=== PATIENT | male | born 1945 | race Caucasian/White ===

== ENCOUNTER 2017-10-17 08:17 | Observation (INO) | payer OTHER ==
--- NOTE | 2017-10-14 15:43 | MH ---
cc: David PATEL DATE OF ADMISSION: 10/17/2017 ADMISSION DIAGNOSIS Osteoarthritic degeneration right knee. ADMISSION HISTORY AND PHYSICAL This pleasant 72-year-old male is being admitted today for right total knee arthroplasty due to severe painful osteoarthritic degeneration of the right knee. PAST MEDICAL HISTORY Other past history: 1. The patient has a history of atrial fibrillation. 2. Hypertension. 3. Hyperlipidemia. 4. Type 2 diabetes mellitus. CURRENT MEDICATIONS 1. NovoLog. 2. Levemir. 3. Baclofen. 4. Invokana 5. Cartia. 6. Atorvastatin. 7. Metoprolol. 8. Doxycycline. 9. Eliquis which is stopped before surgery. PAST SURGICAL HISTORY Previous surgery: 1. Cholecystectomy. 2. Right knee arthroscopy in the past. REVIEW OF SYSTEMS Noncontributory. FAMILY HISTORY Noncontributory. SOCIAL HISTORY He does not smoke or drink. ALLERGIES NO KNOWN ALLERGIES. PHYSICAL EXAMINATION GENERAL: We find a 72-year-old male well-developed, well-nourished, alert and oriented times three complaining of pain in his right knee. VITAL SIGNS: Blood pressure 126/72, pulse 86 and regular, respirations 16, temperature 97.9, pulse oximetry 97% on room air. HEENT: Eyes PERRL, EOMI. Ears, nose, mouth clear. NECK: Supple. LUNGS: Clear. HEART: Regular rate. ABDOMEN: Soft. Positive bowel sounds and nontender. EXTREMITIES: Reveal his knee be tender with crepitance on range of motion. Neurovascularly intact to his toes. IMPRESSION At this time is severe painful osteoarthritic degeneration right knee. PLAN Admission for right total knee arthroplasty today. The patient given a prescription for postoperative pain control in the office and he understands procedure well and risks involved and plans on going home after surgical stay in the hospital. MD SAUMYA Merritt/SOPHIA /5:19 PM /3:19 PM
[~2017-10-17] VITALS: Ht 185.4 cm; Wt 113.3 kg
[2017-10-17] MEDS ORDERED: DEXAMETHASONE SOD PHOS 20 MG/5 ML VIAL ONE (09:54)
[2017-10-17] MEDS ORDERED: ATOR40TA16 PO (10:30)
[2017-10-17] MEDS ORDERED: BACL10TA PO (10:30)
[2017-10-17] MEDS ORDERED: DILT0.05 PO (10:30)
[2017-10-17] MEDS ORDERED: BOSW5TAB (10:30)
[2017-10-17] MEDS ORDERED: MELA1TAB18 PO (10:30)
[2017-10-17] MEDS ORDERED: METO50TA PO (10:30)
[2017-10-17] MEDS ORDERED: APIX5TAB PO (10:30)
[2017-10-17] MEDS ORDERED: LEVEMIR SQ (10:30)
[2017-10-17] MEDS ORDERED: OSTETAB3 PO (10:30)
[2017-10-17] MEDS ORDERED: NOVOLOGP2 SQ ×3 (10:30)
[2017-10-17] MEDS ORDERED: ACCU40TA PO (10:30)
[2017-10-17] MEDS ORDERED: VITACAP7 PO (10:30)
[2017-10-17] MEDS ORDERED: ceFAZolin INJ 1,000 MG VIAL ONE ×2 (10:33→12:44)
[2017-10-17] MEDS ORDERED: ceFAZolin 2 GM PREMIX 50 ML ONE (10:33)
--- NOTE | 2017-10-17 11:10 | HHI.FF ---
Face to Face Verification Diagnosis: (1) Status post total right knee replacement (2) Osteoarthritis of right knee (3) Diabetes (4) Hypertension Physical Therapy Gait training Knee: Total knee, Protocol: Right, Gait training, Full weight bearing Canvas Knee Splint: When in bed & 2 pillows btw thighs Nursing Nursing: Dressing changes Dressing Changes: Daily dressing change, 4x4s, Gauze, Paper tape I have seen patient Juan Lee on 10/17/17. My clinical findings support the need for the requested home health care services because: Limited ability to care for self High risk of falls I certify that my clinical findings support that this patient is homebound because: Unsteady gait/balance David Cazares MD Oct 17, 2017 11:09
[2017-10-17] MEDS ORDERED: CPMMACHINE (11:11)
[2017-10-17] MEDS ORDERED: ADJUSTABLE COMM1 MIS (11:11)
[2017-10-17] MEDS ORDERED: WALKER WHEELS/F1 MIS (11:11)
[2017-10-17] MEDS ORDERED: ACETAMINOPHEN/HYDROcodone 325 MG/7.5 MG TAB PO PRN (11:15)
[2017-10-17] MEDS ORDERED: BACLOFEN 10 MG TAB PO PRN (11:15)
[2017-10-17] MEDS ORDERED: TEMAZEPAM 15 MG CAP PO PRN (11:15)
[2017-10-17] MEDS ORDERED: ACETAMINOPHEN 325 MG TAB PO PRN (11:15)
[2017-10-17] MEDS ORDERED: NALOXONE HCL 0.4 MG/ML AMP IV PUSH PRN (11:15)
[2017-10-17] MEDS ORDERED: ONDANSETRON HCL 4 MG/2 ML VIAL IVP PRN (11:15)
[2017-10-17] MEDS ORDERED: MORPHINE SULFATE 4 MG/ML INJ IV PUSH PRN ×2 (11:15→11:45)
[2017-10-17] MEDS ORDERED: MELATONIN 5 MG TAB PO PRN (11:15)
[2017-10-17] MEDS ORDERED: diphenhydrAMINE HCL 50 MG/ML VIAL IV PUSH PRN (11:15)
[2017-10-17] MEDS ORDERED: CHLORHEXIDINE GLUCONATE 4% SOLN 120 ML BTL TOPICAL SCH (11:30)
[2017-10-17] MEDS ORDERED: ceFAZolin 2 GM PREMIX 50 ML IV SCH (11:30)
[2017-10-17] MEDS ORDERED: LACTATED RINGER'S 1000 ML IV PRN (11:30)
[2017-10-17] MEDS ORDERED: POVIDONE IODINE 5% (ANTISEPSIS KIT) 4 APPLICATIONS EACH NARE PRN (11:30)
[2017-10-17] MEDS ORDERED: CHLORHEXIDINE GLUCONATE 2 % 1 PACK (2 CLOTHS) TOPICAL PRN (11:30)
[2017-10-17] MEDS ORDERED: VANCOMYCIN 1000 MG/NS 250 ML (for <70 kg) IV SCH ×2 (11:30)
[2017-10-17] MEDS ORDERED: SODIUM CHLORID 0.9% 500 ML IV PRN (11:30)
[2017-10-17] MEDS ORDERED: METOPROLOL TARTRATE 25 MG TAB PO PRN (11:30)
[2017-10-17] MEDS ORDERED: EXPAREL PERI-ARTICULAR INJECTION (TOTAL VOL. 120 ML) P-ARTICULR SCH ×2 (12:00)
[2017-10-17] MEDS ORDERED: SODIUM CHLORIDE 0.9% IV SCH ×2 (12:00→15:00)
[2017-10-17] MEDS ORDERED: TRANEXAMIC ACID INJ 1,130 MG in SODIUM CHLORIDE 0.9% INJ 100 ML IV SCH (12:00)
[2017-10-17] MEDS ORDERED: TRANEXAMIC ACID IV SCH ×2 (12:00→15:00)
[2017-10-17] MEDS ORDERED: BUPIVACAINE HCL PF 0.5% 30 ML VIAL ONE (12:10)
[2017-10-17] MEDS ORDERED: *RESP: ALBUTEROL 2.5 MG/3 ML NEB (PRN) PERIprocedural Use ONLY NEB ONE (14:55)
[2017-10-17] MEDS ORDERED: DO NOT ADM ANY ANTICOAGULANT DRUGS PRN (14:56)
--- NOTE | 2017-10-17 14:56 | HHI.PR ---
Immediate Post Op Note Procedure Date: Oct 17, 2017 Pre Op Diagnosis: severe painful osteoarthritic degeneration of the right knee. Post Op Diagnosis: severe osteoarthritic degeneration of the right knee. Surgeon: David Cazares MD Security Escort(s): Luna STOREY Procedure: Right Total Knee Arthroplasty Complications: none Specimen(s) removed: none Estimated blood loss: 200cc Anesthesia: General Drains: None IVF Urinary Output (mLs): 0 (no fley) Tourniquet time (min at mmHg) 57 mins at 300 mmHg Patient to: PACU Patient Condition: Good Implant/Devices: SEE IMPLANT LOG (if applicable) Date/Time of Procedure: SEE SURGICAL CARE RECORD Luna Bergeron Oct 17, 2017 14:56
[2017-10-17] MEDS ORDERED: MIDAZOLAM HCL 2 MG/2 ML VIAL ONE (15:04)
[2017-10-17] MEDS ORDERED: *morphine SULFATE 10 MG/ML PERIprocedure ONLY ONE (15:05)
[2017-10-17] MEDS: LACTATED RINGER'S 1000 ML INJ 1,000 ML IV SCH ×2 (15:30→23:33)
[2017-10-17] MEDS ORDERED: *morphine SULFATE 4 MG/ML PERIprocedure ONLY ONE (15:38)
--- NOTE | 2017-10-17 15:46 | RADRPT ---
EXAM DATE/TIME: 10/17/2017 15:07 [facility] COMPARISON: No previous studies available for comparison. INDICATIONS : Post op right knee. MEDICAL HISTORY : None. SURGICAL HISTORY : None. ENCOUNTER: Initial ACUITY: 1 day PAIN SCORE: Non-responsive. LOCATION: Right knee. FINDINGS: Postsurgical features of right knee arthroplasty. Arthroplasty components are in anatomic alignment. No significant acute bony fracture. Immediate postsurgical soft tissue features. CONCLUSION: 1. Status post right knee arthroplasty in anatomic alignment without significant acute bony fracture. Jonathan Jessica MD on October 17, 2017 at 15:43 Board Certified Radiologist. This report was verified electronically.
[2017-10-17] MEDS ORDERED: *LABETALOL HCL 100 MG/20 ML VIAL PERIprocedural Use ONLY ONE (15:49)
[2017-10-17 16:00] VITALS: BP 167/85; PULSE 74; RESP 19; TEMP 96; O2SAT 92
[2017-10-17] MEDS ORDERED: Post-op Orders (for Pharmacy) XX ONE (16:00)
[2017-10-17] MEDS: INSULIN ASPART 1,000 UNITS/10 ML VIAL SQ SCH (16:00)
--- NOTE | 2017-10-17 18:54 | EKG ---
Date Performed: 10/17/2017 Time Performed: 11:41:42 PTAGE: 72 years EKG: Sinus rhythm NORMAL ECG NO PREVIOUS TRACING DOCTOR: Gume Pérez Interpretating Date/Time 10/17/2017 18:52:16
[2017-10-17 20:00] VITALS: BP 160/82; PULSE 78; RESP 16; TEMP 96.4; O2SAT 94
[2017-10-17] MEDS: METOPROLOL TARTRATE 50 MG TAB PO SCH (20:29)
[2017-10-17] MEDS: INSULIN DETEMIR 100 UNITS/ML VIAL SQ SCH (20:29)
[2017-10-17] MEDS: ATORVASTATIN 40 MG TAB PO SCH (20:29)
[2017-10-17] MEDS ORDERED: GLUCOSAMINE CHONDROITIN PO SCH (21:00)
[2017-10-17] MEDS: ACETAMINOPHEN/HYDROcodone 325 MG/7.5 MG TAB PO PRN (22:08)
[2017-10-18] VITALS: BP 151/86; PULSE 82; RESP 16; TEMP 97.6; O2SAT 95
[2017-10-18] MEDS: ACETAMINOPHEN/HYDROcodone 325 MG/7.5 MG TAB PO PRN ×6 (02:38→22:38)
[2017-10-18 04:00] VITALS: BP 135/66; PULSE 71; RESP 16; TEMP 97.5; O2SAT 92
[2017-10-18 04:29] LABS: HEMATOCRIT 36.5 % (39.0-51.0); HEMOGLOBIN 12.3 GM/DL (13.0-17.0)
[2017-10-18] MEDS: INSULIN ASPART 1,000 UNITS/10 ML VIAL SQ SCH ×3 (07:00→16:00)
[2017-10-18] MEDS: INSULIN DETEMIR 100 UNITS/ML VIAL SQ SCH ×2 (07:38→20:42)
[2017-10-18] MEDS: LISINOPRIL 20 MG TAB PO SCH (07:39)
[2017-10-18] MEDS: METOPROLOL TARTRATE 50 MG TAB PO SCH ×2 (07:39→20:39)
[2017-10-18] MEDS: DILTIAZEM-CD 180 MG CAP ER PO SCH (07:39)
[2017-10-18] MEDS: VITAMIN B CMPLX/VITC/FOLIC AC CAP PO SCH (07:39)
[2017-10-18 08:00] VITALS: BP 149/78; PULSE 78; RESP 18; TEMP 96.7; O2SAT 94
[2017-10-18] MEDS: LACTATED RINGER'S 1000 ML INJ 1,000 ML IV SCH (09:42)
[2017-10-18 10:33] VITALS: BP 99/54; PULSE 70; RESP 18; TEMP 97.8; O2SAT 91
--- NOTE | 2017-10-18 11:48 | PD.ORT.PN ---
Subjective Subjective Remarks Pt fairly comfortable today. no complaints. Objective Vitals Vital Signs Date Time Temp Pulse Resp B/P (MAP) Pulse Ox O2 Delivery O2 Flow Rate FiO2 10/18/17 10:33 97.8 70 18 99/54 (69) 91 10/18/17 08:00 96.7 78 18 149/78 (101) 94 10/18/17 04:00 97.5 71 16 135/66 (89) 92 10/18/17 00:00 97.6 82 16 151/86 (107) 95 10/17/17 20:00 96.4 78 16 160/82 (108) 94 10/17/17 16:15 98.7 77 18 176/87 (116) 95 Nasal Cannula 2 10/17/17 16:00 96.0 74 19 167/85 (112) 92 10/17/17 16:00 68 16 169/85 (113) 95 10/17/17 15:45 80 16 183/88 (119) 94 10/17/17 15:30 82 21 175/85 (115) 95 10/17/17 15:15 80 21 183/82 (115) 95 10/17/17 15:00 78 15 185/90 (121) 97 Nasal Cannula 3 10/17/17 14:55 97.7 82 17 120/90 (100) 94 Simple Mask 6 I/O 10/17/17 10/17/17 10/17/17 10/18/17 10/18/17 10/18/17 07:00 15:00 23:00 07:00 15:00 23:00 Intake Total 2000 ml 100 ml 100 ml Output Total 200 ml Balance 1800 ml 100 ml 100 ml Intake IV Total 2000 ml 100 ml 100 ml Output Estimated Blood Loss 200 ml Result Diagram: 10/18/17 0330 Objective Remarks Sitting up in chair. NV intact. Moving leg well against gravity. Dressing dry and intact. No calf tenderness. Assessment & Plan Ortho Post Op Day #: 1 Problem List: Assessment and Plan Cont PT. Plan home tomorrow with [facility]. David Cazares MD Oct 18, 2017 11:48
[2017-10-18] MEDS: APIXABAN 2.5 MG TABLET PO SCH ×2 (13:53→20:39)
[2017-10-18 15:29] VITALS: BP 144/67; PULSE 73; RESP 17; TEMP 96.4; O2SAT 94
--- NOTE | 2017-10-18 17:34 | MP ---
cc: David PATEL DATE OF SURGERY 10/17/17 PREOPERATIVE DIAGNOSIS Osteoarthritic degeneration, right knee. POSTOPERATIVE DIAGNOSIS Osteoarthritic degeneration, right knee. SURGERY PERFORMED Right total knee arthroplasty using consensus component, size five femur, four tibia, 12 insert and size two patella, two batches of DePuy cement SURGEON Dr. Melanie Patel VACUUM FRAME OPERATOR RALEIGH Daniels ANESTHESIA General intubation and block PROCEDURE IN DETAIL After successful induction of anesthesia, the patient is placed on the operating room table in the supine position. The knee is prepped and draped in the usual manner. A tourniquet is inflated at the upper thigh and set to 300 mmHg pressure after exsanguination of the lower extremity. A longitudinal incision is made extending from 3 inches proximal to the superior pole of the patella, across the patella in longitudinal fashion, and down past the insertion of the tibial tubercle into the proximal tibia. The incision is carried down through subcutaneous tissue along the medial aspect of the patella and retinaculum, down through the capsule to expose the knee joint. The patella and patellar tendon are freed up enough to allow the patella to be inverted and retracted off the lateral side of the knee joint. The knee joint is left exposed. Small osteophytes are removed. All soft tissue is removed to allow proper position of the femoral and tibial cutting jig guide. The first femoral jig is then inserted along the distal end of the femur after first measuring to decide whether this is a small, medium, or large component. The notch is then drilled and the tibial cutting guide inserted into the femoral cutting guide, along with the ankle brace to allow for proper measurement of the tibial cutting surface that needed to be resected. Pins are inserted into the tibial cutting jig and femoral cutting jig to hold them in place. An oscillating saw is then used to resect the surface of the tibia. The surface of the tibia is then completely removed using sharp and blunt dissection. The anterior and posterior cuts of the femur are then made as well using an oscillating saw through the cutting guide. All guides are then removed and the varus/valgus angulation cutting guide applied to the femur for proper measurement of the proper amount of valgus. The anterior cutting guide for the femur is then inserted at the anterior femoral cuts made. Next, the first block trial is inserted into the femur to allow for proper condyle drill holes to be made which are then made followed by removal of the bone between the condyles using an oscillating saw as well as the bone removed at the most posterior surface of the condyle. After this, this guide is removed and the chamfer cuts made using the chamfer cutting guide from both anterior and posterior. Next, the femoral trial is then inserted, the tibial surface reflected anterior to expose the tibial surface and a tibial stem guide is inserted after first measuring for a standard, standard plus, large, or large plus surface to be used. After the stem is impacted the trial tibial surface is applied followed by the trial meniscal components. After full range of motion is found with the appropriate length meniscal components varying the patella is prepared by resecting the posterior aspect of the patella using an oscillating saw, inserting a trial. The trial is then removed and the cruciate cutting guide applied using the bur to cut the cruciate cuts. After cruciate cuts are made all trials are removed. The wound is irrigated copiously with antibiotic solution and Water Pik and the actual components inserted into place using the aforementioned components. After the cement has hardened and the components are found to have full range of motion with no instability, tourniquet was deflated - total tourniquet time being 58 minutes at 300 mmHg pressure. 120 mL of Exparel used around the knee joint for extra pain control. Deep fascia approximated after meticulous hemostasis achieved and the wound irrigated copiously with antibiotic solution. Deep fascia approximated using interrupted #2 quill and subcutaneous tissue approximated using interrupted and running 2-0 and 3-0 Monocryl suture. Steri-Strips, sterile dressing, knee immobilizer. No drain utilized. Estimated blood loss 200 mL. Sponge and suture count were correct. The patient tolerated the procedure well and left the operating room in satisfactory condition and RALEIGH Sanches, was present during the entire procedure to include patient positioning and the procedure. The medical necessity of a nurse practitioner machinist first class was indicated in this case due to the surgical complexity of the case itself. During the surgical case, the educational technologist was working the back table while my executive marketing assistant RALEIGH was directly assisting me. JMD SAUMYA Hooks/ /2:22 PM /5:11 PM
[2017-10-18] MEDS ORDERED: MAGNESIUM HYDROXIDE SUSP 30 ML CUP PO PRN (18:15)
[2017-10-18 20:00] VITALS: BP 142/71; PULSE 68; RESP 15; TEMP 97.5; O2SAT 94
[2017-10-18] MEDS: MULTIVITAMINS/MINERALS THERAPEUTIC TAB PO SCH (20:39)
[2017-10-18] MEDS: DOCUSATE SODIUM 100 MG CAP PO SCH (20:39)
[2017-10-18] MEDS: ATORVASTATIN 40 MG TAB PO SCH (20:39)
[2017-10-18] MEDS ORDERED: BISACODYL EC 5 MG TABEC PO SCH (21:00)
[2017-10-18] MEDS ORDERED: POLYETHYLENE GLYCOL 17 GM PKG PO SCH (21:00)
[2017-10-19] VITALS: BP 139/80; PULSE 69; RESP 16; TEMP 97.9; O2SAT 91
[2017-10-19] MEDS: LACTATED RINGER'S 1000 ML INJ 1,000 ML IV SCH ×2 (00:33→06:47)
[2017-10-19] MEDS: ACETAMINOPHEN/HYDROcodone 325 MG/7.5 MG TAB PO PRN ×3 (02:56→11:44)
[2017-10-19] MEDS: INSULIN ASPART 1,000 UNITS/10 ML VIAL SQ SCH ×2 (07:00→11:00)
--- NOTE | 2017-10-19 07:17 | PD.ORT.PN ---
Subjective Subjective Remarks Pt fairly comfortable today. no complaints. Objective Vitals Vital Signs Date Time Temp Pulse Resp B/P (MAP) Pulse Ox O2 Delivery O2 Flow Rate FiO2 10/19/17 00:00 97.9 69 16 139/80 (99) 91 10/18/17 20:00 97.5 68 15 142/71 (94) 94 10/18/17 15:29 96.4 73 17 144/67 (92) 94 10/18/17 10:33 97.8 70 18 99/54 (69) 91 10/18/17 08:00 96.7 78 18 149/78 (101) 94 I/O 10/18/17 10/18/17 10/18/17 10/19/17 10/19/17 10/19/17 07:00 15:00 23:00 07:00 15:00 23:00 Intake Total 100 ml 100 ml 960 ml 400 ml Balance 100 ml 100 ml 960 ml 400 ml Intake Oral 960 ml 400 ml IV Total 100 ml 100 ml # Voids 3 2 # Bowel Movements 0 1 Result Diagram: 10/18/17 0330 Objective Remarks Sitting up in chair. NV intact. Moving leg even better today against gravity. Dressing dry and intact. No calf tenderness. Assessment & Plan Ortho Post Op Day #: 2 Problem List: Assessment and Plan Cont PT. Plan home today with [facility]. David Cazares MD Oct 19, 2017 07:17
--- NOTE | 2017-10-19 07:23 | HHI.DS ---
Discharge Summary Admission Date Oct 17, 2017 at 11:12 Discharge Date: Oct 19, 2017 Admitting Diagnosis Osteo-Arthritic degeneration right knee Diagnosis: (1) Status post total right knee replacement Diagnosis: Principal ICD Codes: Z96.651 - Presence of right artificial knee joint Brief History This is a 72 year old male patient CBC/BMP: 10/18/17 0330 Significant Findings Laboratory Tests Test 10/18/17 03:30 Hemoglobin 12.3 GM/DL (13.0-17.0) Hematocrit 36.5 % (39.0-51.0) PE at Discharge Sitting up in chair. NV intact. Moving leg even better today against gravity. Dressing dry and intact. No calf tenderness. Hospital Course Patient underwent a right total knee arthroplasty on day of admission. He received a course of prophylactic IV antibiotics and within 23 hours started on anticoagulation therapy. He continued to improve remaining afebrile with stable vital signs. He tolerated by mouth pain meds well along with physical therapy. He received daily wound care and tolerated food and fluids well. He was discharged on the second postoperative day with instructions for home physical therapy and wound care in good condition. He was given instructions for a postoperative visit in the office as well. Pt Condition on Discharge: Good Discharge Disposition: Disch w/ Home Health Serv Discharge Instructions Diet Instructions: As Tolerated, No Restrictions Activities You Can Perform: Full Weight Bearing, Shower Only-No Bath Activities to Avoid: Bathing, Driving David Cazares MD Oct 19, 2017 07:23
[2017-10-19 07:34] VITALS: BP 161/73; PULSE 79; RESP 18; TEMP 95.7; O2SAT 93
[2017-10-19] MEDS: MULTIVITAMINS/MINERALS THERAPEUTIC TAB PO SCH (07:36)
[2017-10-19] MEDS: VITAMIN B CMPLX/VITC/FOLIC AC CAP PO SCH (07:36)
[2017-10-19] MEDS: METOPROLOL TARTRATE 50 MG TAB PO SCH (07:36)
[2017-10-19] MEDS: LISINOPRIL 20 MG TAB PO SCH (07:36)
[2017-10-19] MEDS: INSULIN DETEMIR 100 UNITS/ML VIAL SQ SCH (07:37)
[2017-10-19] MEDS: DILTIAZEM-CD 180 MG CAP ER PO SCH (07:37)
[2017-10-19] MEDS: APIXABAN 2.5 MG TABLET PO SCH (07:37)
[2017-10-19] MEDS: DOCUSATE SODIUM 100 MG CAP PO SCH (07:37)
[2017-10-19 07:41] LABS: HEMOGLOBIN 12.2 GM/DL (13.0-17.0)
[2017-10-19] MEDS ORDERED: BACITRACIN OINT 0.9 GM PKT TOP PRN (10:15)
[2017-10-19 12:00] VITALS: BP 138/68; PULSE 71; RESP 18; TEMP 95.7; O2SAT 95
== END 2017-10-19 14:42 | disposition home health service (06) ==
LOC: HSDC 08:17 → HSDI 11:12 → INTOOBSV 11:12 → N06A 17:15
PROVIDERS: ADMIT Surgery; ATTEND Surgery
DX: M17.11 Unilateral primary osteoarthritis, right knee (principal); I48.91 Unspecified atrial fibrillation; I10 Essential (primary) hypertension; E78.5 Hyperlipidemia, unspecified; E11.9 Type 2 diabetes mellitus without complications; Z79.4 Long term (current) use of insulin
CPT/HCPCS: 01402; 27447; 73560; 82948; 85014; 85018; 86850; 86900; 86901; 93005; 94150; 94664; 96365; 96366; 96372; 96376; 97110; 97116; 97150; 97162; 97166; 97535; C1776; C9290; G0378; G8987; G8988; J0690; J1100; J1815; J2250; J2270; J3010; J3370; J7050; J7120; J7613; L1830

== ENCOUNTER 2018-06-12 13:30 | Inpatient (IN) ==
[2018-06-21] MEDS ORDERED: Metoprolol Tartrate 25 MG Tablet PO ONE (05:41)
[2018-06-21] MEDS ORDERED: Chlorhexidine Gluconate 2% 1 Pack (2 Cloths) TOPICAL ONE (05:41)
[2018-06-21] MEDS ORDERED: Sodium Chlor 0.9% Inj 500 ML IV.SIG SCH (06:00)
[2018-06-21] MEDS ORDERED: ceFAZolin 2 GM Premix Inj 2 GM/50 ML PIGGYBACK IV.SIG SCH (06:00)
[2018-06-21 06:55] LABS: INR 1.1 Ratio; Prothrombin Time 11.3 sec (9.8-11.6)
[2018-06-21] MEDS ORDERED: Neostigmine Inj 5 MG/5 ML Syringe IV.PUSH ONE (07:15)
[2018-06-21] MEDS ORDERED: Phenylephrine/NS 1000 MCG/10ML Syringe IV.PUSH ONE (07:15)
[2018-06-21] MEDS ORDERED: Glycopyrrolate Inj 1 MG/5 ML Syringe IV.PUSH ONE (07:15)
[2018-06-21] MEDS ORDERED: Lidocaine PF 1% Inj 5 ML Syringe OTHER ONE (07:15)
[2018-06-21] MEDS ORDERED: HYDROmorphone PF Inj 2 MG/ML Vial ONE (08:15)
[2018-06-21 09:38] LABS: ABG PCO2 36 mmHg (38-42); ABG PO2 323 mmHG (61-120)
[2018-06-21] MEDS ORDERED: Morphine Inj 4 MG/ML Vial IV.PUSH PRN (12:09)
[2018-06-21] MEDS ORDERED: fentaNYL Citrate Inj 100 MCG/2 ML Ampul ONE (12:55)
[2018-06-21] MEDS: Sod Chloride 0.9% Inj 1,000 ML IV.SIG SCH ×2 (13:00→20:49)
[2018-06-21 13:13] LABS: Baso % (Auto) 0.3 % (0.0-2.0); Eos % (Auto) 0.2 % (0.0-4.0); Hematocrit 31.3 % (39.0-51.0); Hemoglobin 10.6 gm/dL (13.0-17.0); Lymph # (Auto) 0.5 th/mm3 (1.0-4.8); Lymph % (Auto) 4.7 % (9.0-44.0); Mean Corpuscular HGB Conc 33.9 % (32.0-36.0); Mean Corpuscular Hemoglobin 31.3 pg (27.0-34.0); Mean Corpuscular Volume 92.2 fL (80.0-100.0); Mean Platelet Volume 8.9 fL (7.0-11.0); Mono # (Auto) 0.8 th/mm3 (0.0-0.9); Mono % (Auto) 7.5 % (0.0-8.0); Neut # (Auto) 9.5 th/mm3 (1.8-7.7); Neut % (Auto) 87.3 % (16.0-70.0); Platelet Count 251 th/mm3 (150-450); Red Cell Distribution Width 14.1 % (11.6-17.2); White Blood Count 10.9 th/mm3 (4.0-11.0)
[2018-06-21 13:28] LABS: Calcium 8.3 mg/dL (8.5-10.1); Carbon Dioxide 21.5 meq/L (21.0-32.0); Potassium 5.7 meq/L (3.5-5.1)
[2018-06-21] MEDS ORDERED: *morphine SULFATE 4 MG/ML PERIprocedure ONLY ONE (14:09)
[2018-06-21] MEDS: Pantoprazole Inj 40 MG Vial IV.PUSH SCH (16:05)
[2018-06-21] MEDS ORDERED: Dextrose 50% in Water 50 ML Vial IV.PUSH PRN (17:17)
[2018-06-21] MEDS: Insulin Detemir Inj 1,000 UNIT/10 ML Vial SQ SCH (17:32)
--- NOTE | 2018-06-21 17:57 | XR ---
EXAM DATE: 06/21/2018 12:00 AM EDT AGE/SEX: 73 years / Male INDICATIONS: . Evaluate for free air post op nephrectomy. CLINICAL DATA: This is the patient's initial encounter. Patient reports that signs and symptoms have been present for 1 day and indicates a pain score of 3/10. MEDICAL/SURGICAL HISTORY: None. None. COMPARISON: No prior exams available for comparison. FINDINGS: AP and lateral views of the chest demonstrate the lungs to be symmetrically aerated without evidence of mass, infiltrate or effusion. The cardiomediastinal contours are unremarkable. Osseous structure s are intact. Extensive bilateral subcutaneous emphysema. There is pneumoperitoneum with air seen und erneath both hemidiaphragms CONCLUSION: 1. Extensive pneumoperitoneum. 2. Extensive subcutaneous emphysema bilaterally. Electronically signed by: Nico Hankins MD 06/21/2018 5:56 PM EDT
--- NOTE | 2018-06-21 18:01 | P.CON ---
History of Present Illness Service: [facility] Consult date: 06/21/18 Requesting Physician: Arnaldo Trotter Reason for Consult: Medical management Primary Care Provider: David Longoria MD Family Provider: David Longoria MD Chief Complaint: Nephrectomy History of Present Illness: 73-year-old male with past medical history significant for HTN, HLD, DM, CKD, atrial fibrillation anticoagulated on Eliquis who presented to the hospital for a planned right robotic nephroureterectomy today. Patient's medical records were reviewed. In April of this year patient underwent cystoscopy with right double-J stent extraction, right ureteroscopy, right urethral biopsies and right retrograde pyelography patient also had reinsertion of a right double-J stent by . 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 Recommendations were made for patient to have kidney and ureter removed. Patient has undergone this procedure today and [facility] has been consulted to assist with ongoing medical management during his stay. Patient is seen and examined resting in bed with family at bedside appears to be in no acute distress. Left-sided facial edema noted, patient was noted to be on his left side during surgery. He reports some abdominal tenderness, denies any shortness of breath or cough. He denies any nausea, vomiting, headache, dizziness or chest pain. Daughter at bedside asking when patient can be up and out of bed, also requesting physical therapy assessment tomorrow. Discuss abnormal potassium level and need to recheck. Also discussed finding of subcutaneous emphysema and checking chest x-ray. Patient and family's questions were answered. Review of Systems All other systems reviewed negative except as stated in HPI PMF - History History Provided By: Patient, Family Member - Medical History Medical History: Medical History (Last Updated 06/21/18 @ 17:30 by Eduin Kitchen) CKD (chronic kidney disease) HLD (hyperlipidemia) Cancer of kidney History of atrial fibrillation Hypertension IDDM (insulin dependent diabetes mellitus) Presence of orthopedic joint implant - Surgical History Surgical History: Surgical History (Last Reviewed 06/21/18 @ 17:30 by Eduin Kitchen) History of back surgery Hx of cataract surgery Hx of cholecystectomy Hx of shoulder surgery Hx of tonsillectomy Hx of total knee replacement - Tobacco History Second Hand Smoke Exposure: No Tobacco Use In Past 30 Days: No Smoking Status: Former smoker - Alcohol History How Often Do You Have a Drink Containing Alcohol: Never - Substance Use History Substance History: No History of Abuse Medications and Allergies Active Medications: Active Medications Atorvastatin Calcium (Lipitor) 20 mg PO HS [facility] Dextrose (D50w Vial) 50 ml IV.PUSH UNSCH PRN PRN Reason: PER HYPOGLYCEMIA PROTOCOL Diltiazem HCl (Cardizem Cd 24hr) 180 mg PO DAILY [facility] Docusate Sodium (Colace) 100 mg PO BID [facility] Glucagon (Glucagon Inj) 1 mg OTHER PRN PRN PRN Reason: for Hypoglycemia Protocol Lactated Ringer's (Lr 1000 Ml Inj) 1,000 mls @ 30 mls/hr IV.SIG .Q24H [facility] Stop: 06/22/18 05:44 Last Admin: 06/21/18 06:25 Dose: 30 mls/hr Sodium Chloride (Ns Inj) 500 mls @ 30 mls/hr IV.SIG .Q10H [facility] Last Admin: 06/21/18 07:21 Dose: Not Given Cefazolin Sodium/Dextrose (Ancef 2 Gm Premix Inj) 2 gm in 50 mls @ 150 mls/hr IV.SIG TRACK WALKER [facility] Stop: 06/21/18 18:00 Last Infusion: 06/21/18 08:00 Dose: Infused Cefazolin Sodium 1,000 mg/ (Sodium Chloride) 100 mls @ 200 mls/hr IV.SIG Q8H [facility] Stop: 06/22/18 12:29 Sodium Chloride (Ns Inj) 1,000 mls @ 125 mls/hr IV.SIG .Q10H [facility] Last Admin: 06/21/18 13:00 Dose: 125 mls/hr Insulin Aspart (Novolog Insulin Correctional Sugar Inj) 0 unit SQ ACHS [facility]; Protocol Insulin Detemir (Levemir Inj) 25 unit SQ DAILY [facility] Insulin Detemir (Levemir Inj) 25 unit SQ DAILY@1800 [facility] Lisinopril (Prinivil) 20 mg PO DAILY [facility] Melatonin (Melatonin) 10 mg PO HS PRN PRN Reason: INSOMNIA Metoprolol Tartrate (Lopressor) 50 mg PO BID [facility] Miscellaneous Information (Misc Nursing Information) 0 each OTHER UNSCH PRN PRN Reason: SEE LABEL COMMENTS Stop: 06/22/18 12:29 Morphine Sulfate (Morphine Inj) 4 mg IV.PUSH Q4H PRN PRN Reason: BREAKTHROUGH PAIN Ondansetron HCl (Zofran Inj) 4 mg IV.PUSH Q6H PRN PRN Reason: NAUSEA OR VOMITING Oxycodone/Acetaminophen (Percocet 5/325 Mg) 2 tab PO Q4H PRN PRN Reason: PAIN SCALE 6 TO 10 Last Admin: 06/21/18 16:02 Dose: 2 tab Oxycodone/Acetaminophen (Percocet 5/325 Mg) 1 tab PO Q4H PRN PRN Reason: PAIN SCALE 3 TO 5 Pantoprazole Sodium (Protonix Inj) 40 mg IV.PUSH Q24H [facility] Last Admin: 06/21/18 16:05 Dose: 40 mg Allergies Allergy/AdvReac Type Severity Reaction Status Date / Time No Known Allergies Allergy Unverified 06/20/18 09:47 Home Medications Medication Instructions Recorded Confirmed Type apixaban [Eliquis] 2.5 mg PO BID 06/20/18 06/20/18 History atorvastatin 20 mg PO HS 06/20/18 06/21/18 History diltiazem HCl 180 mg PO DAILY 06/20/18 06/21/18 History [id number] 1 tab PO BID 06/20/18 06/21/18 History [Osteo Bi-Flex Triple Strength] insulin detemir U-100 [Levemir 25 unit SUBCUT QAM 06/20/18 06/21/18 History U-100 Insulin] insulin detemir U-100 [Levemir 25 unit SUBCUT QPM 06/20/18 06/21/18 History U-100 Insulin] melatonin 10 mg PO HS PRN 06/20/18 06/21/18 History metoprolol tartrate 50 mg PO BID 06/20/18 06/21/18 History quinapril [Accupril] 20 mg PO DAILY 06/20/18 06/21/18 History vitamin B complex 1 cap PO DAILY 06/20/18 06/21/18 History Physical Exam Vital signs: Vital Signs 06/21/18 06:10 06/21/18 12:45 06/21/18 13:00 Temperature 98.7 F 96 F L Pulse Rate 77 89 69 Respiratory Rate 20 22 20 Blood Pressure 106/62 144/68 H 147/65 H Pulse Oximetry 100 100 95 06/21/18 13:15 06/21/18 14:00 06/21/18 14:30 Temperature Pulse Rate 64 65 65 Respiratory Rate 16 16 22 Blood Pressure 138/65 136/64 124/58 L Pulse Oximetry 97 100 97 06/21/18 15:15 06/21/18 15:48 Temperature 97.8 F 97.2 F L Pulse Rate 71 70 Respiratory Rate 20 18 Blood Pressure 112/57 L 143/60 H Pulse Oximetry 100 99 Intake & Output 06/20/18 06/21/18 06/21/18 18:59 06:59 18:59 Intake Total 2750 / 2750 Output Total 700 / 700 Balance 2049 Weight 87.7 kg Intake: IV 50 / 50 Ancef 2 GM Premix Inj 2 gm In 50 / 50 50 ml @ 150 mls/hr IV.SIG TRACK WALKER [facility] Rx#:[id number] Anesthesia Amount 2700 / 2700 Output: Estimated Blood Loss 300 / 300 Urine Amount (Catheter) 400 / 400 Indwelling Urethral Catheter 400 / 400 Other: Weight On Admission 87.7 kg Narrative: GENERAL: Well-developed well-nourished male resting in bed in no acute distress. SKIN: Warm and dry. HEAD: Atraumatic. Left orbital/facial edema noted. EYES: Pupils equal and round. No scleral icterus. ENT: No nasal bleeding or discharge. Mucous membranes pink and moist. NECK: Trachea midline. CARDIOVASCULAR: Regular rate and rhythm. RESPIRATORY: No accessory muscle use. Clear to auscultation. Breath sounds distant but equal bilaterally. Subcutaneous emphysema noted. GASTROINTESTINAL: Abdomen soft, non-tender, nondistended. + Bowel sounds. Right lower quadrant dressing dry and intact, multiple abdominal puncture sites well approximated, dry and intact open to air. MUSCULOSKELETAL: Extremities without clubbing, cyanosis, or edema. No obvious deformities. NEUROLOGICAL: Awake and alert, oriented x3. No obvious cranial nerve deficits. Motor grossly within normal limits. Five out of 5 muscle strength in the arms and legs. Normal speech. PSYCHIATRIC: Appropriate mood and affect; insight and judgment normal. 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 [facility] has been consulted to assist with ongoing medical management during his stay. Malignant pathology of renal biopsy -Patient is s/p right robotic nephro ureter ectomy by - Pain control with oral Percocet and IV morphine for breakthrough pain -Continue Sousa catheter, likely discontinue tomorrow in the morning, continue to monitor urine output closely -Monitor incision sites for infection Chronic kidney disease Unsure of creatinine baseline -Continue IVF recheck renal function in the a.m - Recheck K level 5.1 Diabetes mellitus - Liquid diet, likely advance tomorrow - Accu-checks with ISS - Continue home dose Levemir Atrial fibrillation HTN/HLD - Eliquis on hold following surgery, resume tomorrow if okay with - Rate control with Cardizem, continue metoprolol and Lisinopril for BP control Subcutaneous emphysema -Chest x-ray reviewed, extensive pneumoperitoneum and extensive subcutaneous emphysema bilaterally. -Patient is asymptomatic, oxygen saturation stable and VSS. -Continue to monitor - Discussed with via phone results of chest x-ray. States these are normal findings after surgery, may take 7-10 days to resolve. DVT prophylaxis-SCD's Thank you for this consultation, will continue to follow with you. Discussed Condition With: Patient, family, and
[2018-06-21] MEDS: Docusate Sodium 100 MG Capsule PO SCH (20:36)
[2018-06-21] MEDS: Metoprolol Tartrate 50 MG Tablet PO SCH (20:36)
[2018-06-21] MEDS: Insulin NovoLOG Aspart Correctional Sugar Inj SQ SCH (20:50)
[2018-06-21] MEDS ORDERED: Melatonin 5 MG Tablet PO PRN (21:00)
[2018-06-22] MEDS: Sod Chloride 0.9% Inj 1,000 ML IV.SIG SCH (05:00)
[2018-06-22 07:53] LABS: Hematocrit 26.9 % (39.0-51.0); Mean Corpuscular HGB Conc 33.5 % (32.0-36.0); Mean Corpuscular Hemoglobin 30.6 pg (27.0-34.0); Mean Corpuscular Volume 91.3 fL (80.0-100.0); Mean Platelet Volume 9.4 fL (7.0-11.0); Platelet Count 190 th/mm3 (150-450); Red Blood Count 2.95 mil/mm3 (4.50-5.90); Red Cell Distribution Width 13.6 % (11.6-17.2); White Blood Count 6.1 th/mm3 (4.0-11.0)
[2018-06-22 08:20] LABS: Calcium 7.6 mg/dL (8.5-10.1); Potassium 4.2 meq/L (3.5-5.1)
[2018-06-22] MEDS: Insulin NovoLOG Aspart Correctional Sugar Inj SQ SCH ×4 (08:38→20:49)
[2018-06-22] MEDS ORDERED: Sodium Chloride 0.9% 2 ML Flush PRN IV.FLUSH (08:51)
[2018-06-22] MEDS ORDERED: Sod Chloride 0.9% Inj 1,000 ML IV.SIG SCH ×3 (09:00→18:00)
[2018-06-22] MEDS: dilTIAZem CD 180 MG Capsule PO SCH (10:02)
[2018-06-22] MEDS: Docusate Sodium 100 MG Capsule PO SCH ×2 (10:03→20:46)
[2018-06-22] MEDS: Metoprolol Tartrate 50 MG Tablet PO SCH ×2 (10:03→20:46)
[2018-06-22] MEDS: Lisinopril 20 MG Tablet PO SCH (10:04)
[2018-06-22] MEDS: Sodium Chloride 0.9% 2 ML Flush BID IV.FLUSH SCH ×2 (10:04→20:49)
[2018-06-22] MEDS: Insulin Detemir Inj 1,000 UNIT/10 ML Vial SQ SCH ×2 (10:15→17:59)
--- NOTE | 2018-06-22 11:12 | P.PN ---
Subjective Interval history: Follow-up visit for nephroureterectomy. Patient is seen and examined up in chair in no acute distress. He had his Sousa removed this a.m. still not yet voiding. He has not had a BM yet, but + flatus. He denies any SOB, cough, chest pain, N/V. He still has some abdominal tenderness, but this is improved. Physical Exam Vital signs: Vital Signs 06/21/18 12:45 06/21/18 13:00 06/21/18 13:15 Temperature 96 F L Pulse Rate 89 69 64 Respiratory Rate 22 20 16 Blood Pressure 144/68 H 147/65 H 138/65 Pulse Oximetry 100 95 97 06/21/18 14:00 06/21/18 14:30 06/21/18 15:15 Temperature 97.8 F Pulse Rate 65 65 71 Respiratory Rate 16 22 20 Blood Pressure 136/64 124/58 L 112/57 L Pulse Oximetry 100 97 100 06/21/18 15:48 06/21/18 19:42 06/21/18 23:37 Temperature 97.2 F L 97.2 F L Pulse Rate 70 67 Respiratory Rate 18 18 18 Blood Pressure 143/60 H 125/62 Pulse Oximetry 99 100 06/22/18 00:00 06/22/18 04:00 06/22/18 08:00 Temperature 98.1 F 98.1 F 98.6 F Pulse Rate 73 91 H 84 Respiratory Rate 17 18 19 Blood Pressure 121/56 L 128/57 L 115/59 L Pulse Oximetry 99 96 94 L Intake & Output 06/21/18 06/22/18 06/22/18 18:59 06:59 18:59 Intake Total 2750 / 2750 3200 / 3200 Output Total 700 / 700 1100 / 1100 Balance 205 / 2050 2100 / 2100 Weight 87.9 kg Intake: IV 50 / 50 2200 / 2200 NS Inj 1,000 ML @ 125 mls/hr IV 1999 / 1999 .SIG .Q10H [facility] Rx#:[id number] Ancef 2 GM Premix Inj 2 gm In 50 / 50 50 ml @ 150 mls/hr IV.SIG [employer] [facility] Rx#:[id number] Ancef Inj 1,000 MG In NS Inj 200 / 200 100 ML @ 200 mls/hr IV.SIG Q8H [facility] Rx#:[id number] Oral 1000 / 1000 Anesthesia Amount 2700 / 2700 Output: Estimated Blood Loss 300 / 300 Urine Amount (Catheter) 400 / 400 1100 / 1100 Indwelling Urethral Catheter 400 / 400 1100 / 1100 Other: # Voids 4 Date of Last Bowel Movement 06/20/18 Narrative: GENERAL: Well-developed well-nourished male resting in bed in no acute distress. SKIN: Warm and dry. HEAD: Atraumatic. Left orbital/facial edema noted, improved today. EYES: Pupils equal and round. No scleral icterus. ENT: No nasal bleeding or discharge. Mucous membranes pink and moist. NECK: Trachea midline. CARDIOVASCULAR: Regular rate and rhythm. RESPIRATORY: No accessory muscle use. Clear to auscultation. Breath sounds distant but equal bilaterally. Subcutaneous emphysema noted. GASTROINTESTINAL: Abdomen soft, non-tender, nondistended. + Bowel sounds. Right lower quadrant dressing dry and intact, multiple abdominal puncture sites well approximated, dry and intact open to air. MUSCULOSKELETAL: Extremities without clubbing, cyanosis, or edema. No obvious deformities. NEUROLOGICAL: Awake and alert, oriented x3. No obvious cranial nerve deficits. Motor grossly within normal limits. Five out of 5 muscle strength in the arms and legs. Normal speech. PSYCHIATRIC: Appropriate mood and affect; insight and judgment normal. - Urinary Catheter Management Indwelling Urethral Catheter Cath placed during this visit: yes Reason for continuing: Hourly intake/output Insertion date: 06/21/18 Insertion time: 07:30 Results - Labs CBC & Chem 7: 06/22/18 06:24 06/22/18 06:24 Laboratory Results - last 24 hr 06/21/18 06/21/18 06/21/18 06:25 13:05 13:05 WBC 10.9 RBC 3.40 L Hgb 10.6 L Hct 31.3 L MCV 92.2 MCH 31.3 MCHC 33.9 RDW 14.1 Plt Count 251 MPV 8.9 Neut % (Auto) 87.3 H Lymph % (Auto) 4.7 L [place] % (Auto) 7.5 Eos % (Auto) 0.2 Baso % (Auto) 0.3 Neut # (Auto) 9.5 H Lymph # (Auto) 0.5 L [place] # (Auto) 0.8 Eos # (Auto) 0.0 Baso # (Auto) 0.0 WBC Differential . Differential Comment Auto diff final Sodium 139 Potassium 5.7 H Chloride 109 H Carbon Dioxide 21.5 Anion Gap 9 BUN 20 H Creatinine 2.14 H Estimated GFR 30 L POC Glucose Random Glucose 232 H Calcium 8.3 L Blood Type A Negative Antibody Screen Negative MTS Gel Crossmatch See Detail 06/21/18 06/21/18 06/21/18 16:03 16:03 20:45 WBC RBC Hgb Hct MCV MCH MCHC RDW Plt Count MPV Neut % (Auto) Lymph % (Auto) [place] % (Auto) Eos % (Auto) Baso % (Auto) Neut # (Auto) Lymph # (Auto) [place] # (Auto) Eos # (Auto) Baso # (Auto) WBC Differential Differential Comment Sodium Potassium 5.1 Chloride Carbon Dioxide Anion Gap BUN Creatinine Estimated GFR POC Glucose 228 H 253 H Random Glucose Calcium Blood Type Antibody Screen MTS Gel Crossmatch 06/22/18 06/22/18 06/22/18 06:24 06:24 07:55 WBC 6.1 RBC 2.95 L Hgb 9.0 L Hct 26.9 L MCV 91.3 MCH 30.6 MCHC 33.5 RDW 13.6 Plt Count 190 MPV 9.4 Neut % (Auto) Lymph % (Auto) [place] % (Auto) Eos % (Auto) Baso % (Auto) Neut # (Auto) Lymph # (Auto) [place] # (Auto) Eos # (Auto) Baso # (Auto) WBC Differential Differential Comment Sodium 143 Potassium 4.2 D Chloride 110 H Carbon Dioxide 26.0 Anion Gap 7 BUN 20 H Creatinine 1.89 H Estimated GFR 35 L POC Glucose 94 Random Glucose 85 D Calcium 7.6 L Blood Type Antibody Screen MTS Gel Crossmatch - Imaging Impressions Chest X-Ray 06/21/18 00:00 CONCLUSION: 1. Extensive pneumoperitoneum. 2. Extensive subcutaneous emphysema bilaterally. 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 [facility] has been consulted to assist with ongoing medical management during his stay. Malignant pathology of renal biopsy -Patient is s/p right robotic nephro ureter ectomy by - Pain control with oral Percocet and IV morphine for breakthrough pain -D/C Sousa cath, wait for void -Monitor incision sites for infection Chronic kidney disease Unsure of creatinine baseline -Continue IVF recheck renal function in the a.m - Slight improvement in creatinine and K back to normal Diabetes mellitus - Liquid diet, likely advance today - Accu-checks with ISS - Continue home dose Levemir Atrial fibrillation HTN/HLD - Eliquis on hold following surgery, resume when okay with - Rate control with Cardizem, continue metoprolol and Lisinopril for BP control Subcutaneous emphysema -Chest x-ray reviewed, extensive pneumoperitoneum and extensive subcutaneous emphysema bilaterally. -Patient is asymptomatic, oxygen saturation stable and VSS. - Discussed with 06/21 via phone results of chest x-ray. States these are normal findings after surgery, may take 7-10 days to resolve. DVT prophylaxis-SCD's Patient medically clear for discharge. Discussed Condition With: Patient and therapist occupational Planning: DC home by
--- NOTE | 2018-06-22 13:27 | P.PNURO ---
Subjective Patient symptoms today: Pt is s/p right robotic nephro-ureterectomy by yesterday, difficult case. He was seen at bedside this afternoon. Feels better. Could not sleep well at night but not related to pain issues. As per family "he looks 100% better than yesterday". Pain is controlled. VS and labs are stable. no BM yest but admits some + flatus. Was able to ambulate with help. Tolerates current diet well. Abdullahi catheter was removed around 5-6AM, not voided yet, as per pt bladder scan was normal so far, he does not have a lot of urine yet in the bladder Also c/o sore throat due to anesthesia Objective Vital Signs: Vital Signs 06/21/18 13:15 06/21/18 14:00 06/21/18 14:30 Temperature Pulse Rate 64 65 65 Respiratory Rate 16 16 22 Blood Pressure 138/65 136/64 124/58 L Pulse Oximetry 97 100 97 06/21/18 15:15 06/21/18 15:48 06/21/18 19:42 Temperature 97.8 F 97.2 F L 97.2 F L Pulse Rate 71 70 67 Respiratory Rate 20 18 18 Blood Pressure 112/57 L 143/60 H 125/62 Pulse Oximetry 100 99 100 06/21/18 23:37 06/22/18 00:00 06/22/18 04:00 Temperature 98.1 F 98.1 F Pulse Rate 73 91 H Respiratory Rate 18 17 18 Blood Pressure 121/56 L 128/57 L Pulse Oximetry 99 96 06/22/18 08:00 06/22/18 12:00 Temperature 98.6 F 97.6 F Pulse Rate 84 69 Respiratory Rate 19 18 Blood Pressure 115/59 L 96/52 L Pulse Oximetry 94 L 94 L Intake & Output 06/21/18 06/22/18 06/22/18 18:59 06:59 18:59 Intake Total 2750 / 2750 3200 / 3200 Output Total 700 / 700 1100 / 1100 Balance 2049 / 2049 2100 / 2100 Weight 87.9 kg Intake: IV 50 / 50 2200 / 2200 NS Inj 1,000 ML @ 125 mls/hr IV 1999 / 1999 .SIG .Q10H [facility] Rx#:[id number] Ancef 2 GM Premix Inj 2 gm In 50 / 50 50 ml @ 150 mls/hr IV.SIG [employer]OBENZENE TENDER [facility] Rx#:[id number] Ancef Inj 1,000 MG In NS Inj 200 / 200 100 ML @ 200 mls/hr IV.SIG Q8H [facility] Rx#:[id number] Oral 1000 / 1000 Anesthesia Amount 2700 / 2700 Output: Estimated Blood Loss 300 / 300 Urine Amount (Catheter) 400 / 400 1100 / 1100 Indwelling Urethral Catheter 400 / 400 1100 / 1100 Other: # Voids 4 Date of Last Bowel Movement 06/20/18 Result Diagrams: 06/22/18 06:24 06/22/18 06:24 Imaging: Impressions Chest X-Ray 06/21/18 00:00 CONCLUSION: 1. Extensive pneumoperitoneum. 2. Extensive subcutaneous emphysema bilaterally. Medications and IVs: Active Medications Generic Name Dose Route Start Last Admin Trade Name Freq PRN Reason Stop Dose Admin Atorvastatin Calcium 20 mg 06/21/18 21:00 06/21/18 20:36 Lipitor PO 20 mg HS [facility] Administration Dextrose 50 ml 06/21/18 17:17 D50w Vial IV.PUSH UNSCH PRN PER HYPOGLYCEMIA PROTOCOL Diltiazem HCl 180 mg 06/22/18 09:00 06/22/18 10:02 Cardizem Cd 24hr PO 180 mg DAILY [facility] Administration Docusate Sodium 100 mg 06/21/18 21:00 06/22/18 10:03 Colace PO 100 mg BID [facility] Administration Glucagon 1 mg 06/21/18 17:17 Glucagon Inj OTHER PRN PRN for Hypoglycemia Protocol Sodium Chloride 500 mls @ 30 mls/hr 06/21/18 06:00 06/21/18 07:21 Ns Inj IV.SIG Not Given .Q10H [facility] Sodium Chloride 1,000 mls @ 75 mls/hr 06/22/18 09:00 Ns Inj IV.SIG .Q10H [facility] Insulin Aspart 0 unit 06/21/18 21:00 06/22/18 12:29 Novolog Insulin Correctional Sugar Inj SQ Not Given ACHS [facility] Protocol Insulin Detemir 25 unit 06/22/18 09:00 06/22/18 10:15 Levemir Inj SQ 25 unit DAILY [facility] Administration Insulin Detemir 25 unit 06/21/18 18:00 06/21/18 17:32 Levemir Inj SQ 25 unit DAILY@1800 [facility] Administration Lisinopril 20 mg 06/22/18 09:00 06/22/18 10:04 Prinivil PO 20 mg DAILY [facility] Administration Melatonin 10 mg 06/21/18 21:00 Melatonin PO HS PRN INSOMNIA Metoprolol Tartrate 50 mg 06/21/18 21:00 06/22/18 10:03 Lopressor PO 50 mg BID [facility] Administration Morphine Sulfate 4 mg 06/21/18 12:09 Morphine Inj IV.PUSH Q4H PRN BREAKTHROUGH PAIN Ondansetron HCl 4 mg 06/21/18 12:10 06/21/18 18:01 Zofran Inj IV.PUSH 4 mg Q6H PRN Administration NAUSEA OR VOMITING Oxycodone/Acetaminophen 2 tab 06/21/18 12:11 06/22/18 10:05 Percocet 5/325 Mg PO 2 tab Q4H PRN Administration PAIN SCALE 6 TO 10 Oxycodone/Acetaminophen 1 tab 06/21/18 12:13 Percocet 5/325 Mg PO Q4H PRN PAIN SCALE 3 TO 5 Pantoprazole Sodium 40 mg 06/21/18 15:00 06/21/18 16:05 Protonix Inj IV.PUSH 40 mg Q24H [facility] Administration Sodium Chloride 2 ml 06/22/18 09:00 06/22/18 10:04 Ns Flush IV.FLUSH Not Given BID [facility] Sodium Chloride 2 ml 06/22/18 08:51 Ns Flush IV.FLUSH PRN PRN FLUSH AFTER USING IV ACCESS Objective Remarks: NAD RRR Clear lungs Abd soft, NT. Incisions c/d/i Bladder is not significantly distended, felt urge to void on exam Assessment and Plan - Plan 73y.o M POD # 1 s/p right robotic nephro ureterectomy by Continue current management Continue the same diet, advance to regular tomorrow AM Pain meds prn Labs at AM Monitor Urine output, if not voiding scan bladder and place abdullahi if retains > 200-250cc Hold Eliquis for now OOB and ambulate, Use IS if in bed Sore throat lozenges prn Benadryl prn for insomnia Hospitalist service help appreciated. Urology continues to follow Discussed Condition With: RN, and Dr Trotter
[2018-06-22] MEDS: Pantoprazole Inj 40 MG Vial IV.PUSH SCH (16:37)
[2018-06-22] MEDS: Sodium Chlor 0.9% Inj 1,000 ML IV.SIG SCH (22:17)
[2018-06-23] MEDS: Sodium Chlor 0.9% Inj 1,000 ML IV.SIG SCH ×3 (05:04→19:46)
[2018-06-23 05:12] LABS: Baso % (Auto) 0.3 % (0.0-2.0); Eos # (Auto) 0.2 th/mm3 (0.0-0.4); Eos % (Auto) 2.5 % (0.0-4.0); Hematocrit 25.5 % (39.0-51.0); Hemoglobin 8.4 gm/dL (13.0-17.0); Lymph # (Auto) 0.5 th/mm3 (1.0-4.8); Lymph % (Auto) 7.5 % (9.0-44.0); Mean Corpuscular HGB Conc 33.1 % (32.0-36.0); Mean Corpuscular Hemoglobin 30.5 pg (27.0-34.0); Mean Corpuscular Volume 92.3 fL (80.0-100.0); Mean Platelet Volume 9.5 fL (7.0-11.0); Mono # (Auto) 0.4 th/mm3 (0.0-0.9); Mono % (Auto) 6.1 % (0.0-8.0); Neut # (Auto) 5.8 th/mm3 (1.8-7.7); Neut % (Auto) 83.6 % (16.0-70.0); Platelet Count 188 th/mm3 (150-450); Red Blood Count 2.76 mil/mm3 (4.50-5.90); White Blood Count 6.9 th/mm3 (4.0-11.0)
[2018-06-23 05:51] LABS: Calcium 7.1 mg/dL (8.5-10.1); Carbon Dioxide 21.1 meq/L (21.0-32.0)
[2018-06-23 06:09] LABS: Total Protein 5.2 g/dL (6.4-8.2)
--- NOTE | 2018-06-23 08:12 | P.PN ---
Subjective Interval history: Follow-up visit for nephroureterectomy. Patient seen and examined resting in bed comfortably in no acute distress. Voice any acute concerns or complaints overnight. Voiding now on his own without any dysuria. Passing flatus no bowel movement yet, has not had any solid food since Tuesday. Denies any fevers , chills, nausea, vomiting, cough, shortness of breath or chest pain. Some abdominal tenderness related to his body positioning although tolerable. Nurse reports hypoglycemia this morning with blood sugar of 60, provided with apple juice and blood sugar improved to 82. Decrease Levemir dose to 20 units twice daily. Physical Exam Vital signs: Vital Signs 06/22/18 12:00 06/22/18 16:00 06/22/18 20:00 Temperature 97.6 F 97.7 F 97.9 F Pulse Rate 69 70 73 Respiratory Rate 18 18 18 Blood Pressure 96/52 L 94/50 L 103/50 L Pulse Oximetry 94 L 95 94 L 06/23/18 00:00 Temperature 97.9 F Pulse Rate 78 Respiratory Rate 18 Blood Pressure 103/55 L Pulse Oximetry 94 L Intake & Output 06/22/18 06/23/18 06/23/18 18:59 06:59 18:59 Intake Total 3200 / 3200 1999 / 1999 Output Total 0 / 0 975 / 975 Balance 3200 / 3200 1025 / 1025 Weight 89 kg Intake: IV 2100 / 2100 1300 / 1300 NS Inj 1,000 ML @ 75 mls/hr IV. 1999 300 / 300 SIG .[id number] [facility] Rx#:[id number] NS Inj 1,000 ML @ 125 mls/hr IV 1000 / 1000 .SIG .Q10H [facility] Rx#:[id number] Ancef Inj 1,000 MG In NS Inj 100 / 100 100 ML @ 200 mls/hr IV.SIG Q8H [facility] Rx#:[id number] Oral 1100 / 1100 700 / 700 Output: Urine 0 / 0 975 / 975 Other: # Bowel Movements 0 Narrative: GENERAL: Well-developed well-nourished male resting in bed in no acute distress. SKIN: Warm and dry. HEAD: Atraumatic. Left orbital/facial edema noted, continue to impove. EYES: Pupils equal and round. No scleral icterus. ENT: No nasal bleeding or discharge. Mucous membranes pink and moist. NECK: Trachea midline. CARDIOVASCULAR: Regular rate and rhythm. RESPIRATORY: No accessory muscle use. Clear to auscultation. Breath sounds distant but equal bilaterally. Subcutaneous emphysema noted. GASTROINTESTINAL: Abdomen soft, non-tender, nondistended. + Bowel sounds. Right lower quadrant dressing dry and intact, multiple abdominal puncture sites well approximated, dry and intact open to air. MUSCULOSKELETAL: Extremities without clubbing, cyanosis, or edema. No obvious deformities. NEUROLOGICAL: Awake and alert, oriented x3. No obvious cranial nerve deficits. Motor grossly within normal limits. Normal speech. PSYCHIATRIC: Appropriate mood and affect; insight and judgment normal. - Urinary Catheter Management Indwelling Urethral Catheter Cath placed during this visit: yes Reason for continuing: Hourly intake/output Insertion date: 06/21/18 Insertion time: 07:30 Results - Labs CBC & Chem 7: 06/23/18 04:09 06/23/18 04:09 Laboratory Results - last 24 hr 06/22/18 06/22/18 06/22/18 06:24 12:24 17:46 WBC RBC Hgb Hct MCV MCH MCHC RDW Plt Count MPV Neut % (Auto) Lymph % (Auto) Crane % (Auto) Eos % (Auto) Baso % (Auto) Neut # (Auto) Lymph # (Auto) Crane # (Auto) Eos # (Auto) Baso # (Auto) WBC Differential Differential Comment Sodium 143 Potassium 4.2 D Chloride 110 H Carbon Dioxide 26.0 Anion Gap 7 BUN 20 H Creatinine 1.89 H Estimated GFR 35 L POC Glucose 135 H 243 H Random Glucose 85 D Calcium 7.6 L Prot Corrected Calcium Total Protein 06/22/18 06/23/18 06/23/18 20:48 04:09 04:09 WBC 6.9 RBC 2.76 L Hgb 8.4 L Hct 25.5 L MCV 92.3 MCH 30.5 MCHC 33.1 RDW 14.0 Plt Count 188 MPV 9.5 Neut % (Auto) 83.6 H Lymph % (Auto) 7.5 L Crane % (Auto) 6.1 Eos % (Auto) 2.5 Baso % (Auto) 0.3 Neut # (Auto) 5.8 Lymph # (Auto) 0.5 L Crane # (Auto) 0.4 Eos # (Auto) 0.2 Baso # (Auto) 0.0 WBC Differential . Differential Comment Auto diff final Sodium 142 Potassium 4.0 Chloride 110 H Carbon Dioxide 21.1 Anion Gap 11 BUN 19 H Creatinine 1.98 H Estimated GFR 33 L POC Glucose 202 H Random Glucose 69 L Calcium 7.1 L* Prot Corrected Calcium 8.1 L Total Protein 5.2 L Assessment and Plan - Assessment (1) Diabetes mellitus Code(s): E11.9 - Type 2 diabetes mellitus without complications Status: Acute (2) HTN (hypertension) Code(s): I10 - Essential (primary) hypertension Status: Acute (3) HLD (hyperlipidemia) Code(s): E78.5 - Hyperlipidemia, unspecified Status: Acute (4) Atrial fibrillation Code(s): I48.91 - Unspecified atrial fibrillation Status: Acute (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 [facility] has been consulted to assist with ongoing medical management during his stay. Malignant pathology of renal biopsy -Patient is s/p right robotic nephroureterectomy by - Pain control with oral Percocet and IV morphine for breakthrough pain -D/C Sousa cath, wait for void -Monitor incision sites for infection Chronic kidney disease Unsure of creatinine baseline -Continue IVF, renal function still on the low side. Diabetes mellitus -Regular diet this morning - Accu-checks with ISS -Hypoglycemic this morning with blood sugar at 60, improved with apple juice. Recommend decreasing Levemir dose to 20 units twice daily. Atrial fibrillation HTN/HLD - Eliquis on hold following surgery, resume when okay with - Rate control with Cardizem, continue metoprolol and Lisinopril for BP control - BP yesterday on the low side, parameters for BB entered Subcutaneous emphysema -Chest x-ray reviewed, extensive pneumoperitoneum and extensive subcutaneous emphysema bilaterally. -Patient is asymptomatic, oxygen saturation stable and VSS. - Drop in O2 with need for NC last HS, but stable now. 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
[2018-06-23] MEDS: Insulin NovoLOG Aspart Correctional Sugar Inj SQ SCH ×4 (10:24→20:35)
[2018-06-23] MEDS: Docusate Sodium 100 MG Capsule PO SCH ×2 (10:32→20:27)
[2018-06-23] MEDS: dilTIAZem CD 180 MG Capsule PO SCH (10:33)
[2018-06-23] MEDS: Metoprolol Tartrate 50 MG Tablet PO SCH ×2 (10:34→20:34)
[2018-06-23] MEDS: Insulin Detemir Inj 1,000 UNIT/10 ML Vial SQ SCH ×2 (10:35→11:42)
[2018-06-23] MEDS: Lisinopril 20 MG Tablet PO SCH (10:36)
--- NOTE | 2018-06-23 10:55 | P.PNURO ---
Subjective Patient symptoms today: Pt was seen at bedside. Has no new c/o. Pain controlled. no f/c/n/v, .H/H is dropped to 8.4/25.5. Also as per family his O2 was in high 80s but no record of it, and he was on Oxygen. denies dizziness/lightheadedness. Now its 95 w/out any oxygen. His BP is on a low side, 97/54. P was >100 at 8AM but he also had Glucose of 60 at that time. Was dehydrated yesterday so fluids were restarted and after that he was able to void. Ambulates and tolerates diet well. Objective Vital Signs: Vital Signs 06/22/18 12:00 06/22/18 16:00 06/22/18 20:00 Temperature 97.6 F 97.7 F 97.9 F Pulse Rate 69 70 73 Respiratory Rate 18 18 18 Blood Pressure 96/52 L 94/50 L 103/50 L Pulse Oximetry 94 L 95 94 L 06/23/18 00:00 06/23/18 08:00 Temperature 97.9 F 98.7 F Pulse Rate 78 104 H Respiratory Rate 18 Blood Pressure 103/55 L 101/54 L Pulse Oximetry 94 L 93 L Intake & Output 06/22/18 06/23/18 06/23/18 18:59 06:59 18:59 Intake Total 3200 / 3200 1999 Output Total 0 / 0 975 / 975 Balance 3200 / 3200 1025 / 1025 Weight 89 kg Intake: IV 2100 / 2100 1300 / 1300 NS Inj 1,000 ML @ 75 mls/hr IV. 1999 300 / 300 SIG .[id number] [facility] Rx#:[id number] NS Inj 1,000 ML @ 125 mls/hr IV 1000 / 1000 .SIG .Q10H [facility] Rx#:[id number] Ancef Inj 1,000 MG In NS Inj 100 / 100 100 ML @ 200 mls/hr IV.SIG Q8H [facility] Rx#:[id number] Oral 1100 / 1100 700 / 700 Output: Urine 0 / 0 975 / 975 Other: # Bowel Movements 0 Result Diagrams: 06/23/18 04:09 06/23/18 04:09 Medications and IVs: Active Medications Generic Name Dose Route Start Last Admin Trade Name Freq PRN Reason Stop Dose Admin Atorvastatin Calcium 20 mg 06/21/18 21:00 06/22/18 20:46 Lipitor PO 20 mg HS [facility] Administration Benzocaine/Menthol 1 lozenge 06/22/18 14:00 Chloraseptic Sore Throat Lozenge BUCCAL 06/26/18 13:16 PRN [facility] Dextrose 50 ml 06/21/18 17:17 D50w Vial IV.PUSH UNSCH PRN PER HYPOGLYCEMIA PROTOCOL Diltiazem HCl 180 mg 06/22/18 09:00 06/23/18 10:33 Cardizem Cd 24hr PO 180 mg DAILY [facility] Administration Diphenhydramine HCl 50 mg 06/22/18 21:00 Benadryl PO HS PRN INSOMNIA Docusate Sodium 100 mg 06/21/18 21:00 06/23/18 10:32 Colace PO 100 mg BID [facility] Administration Glucagon 1 mg 06/21/18 17:17 Glucagon Inj OTHER PRN PRN for Hypoglycemia Protocol Sodium Chloride 1,000 mls @ 125 mls/hr 06/22/18 20:00 06/23/18 05:04 Ns Inj IV.SIG 125 mls/hr .Q10H [facility] Administration Insulin Aspart 0 unit 06/21/18 21:00 06/23/18 10:24 Novolog Insulin Correctional Sugar Inj SQ Not Given ACHS [facility] Protocol Insulin Detemir 20 unit 06/23/18 09:30 06/23/18 10:35 Levemir Inj SQ 20 unit DAILY [facility] Administration Insulin Detemir 20 unit 06/23/18 18:00 Levemir Inj SQ DAILY@1800 [facility] Lisinopril 20 mg 06/22/18 09:00 06/23/18 10:36 Prinivil PO 20 mg DAILY [facility] Administration Melatonin 10 mg 06/21/18 21:00 Melatonin PO HS PRN INSOMNIA Metoprolol Tartrate 50 mg 06/21/18 21:00 06/23/18 10:34 Lopressor PO 50 mg BID [facility] Administration Morphine Sulfate 4 mg 06/21/18 12:09 Morphine Inj IV.PUSH Q4H PRN BREAKTHROUGH PAIN Ondansetron HCl 4 mg 06/21/18 12:10 06/22/18 13:52 Zofran Inj IV.PUSH 4 mg Q6H PRN Administration NAUSEA OR VOMITING Oxycodone/Acetaminophen 2 tab 06/21/18 12:11 06/23/18 03:35 Percocet 5/325 Mg PO 2 tab Q4H PRN Administration PAIN SCALE 6 TO 10 Oxycodone/Acetaminophen 1 tab 06/21/18 12:13 Percocet 5/325 Mg PO Q4H PRN PAIN SCALE 3 TO 5 Pantoprazole Sodium 40 mg 06/21/18 15:00 06/22/18 16:37 Protonix Inj IV.PUSH 40 mg Q24H [facility] Administration Sodium Chloride 2 ml 06/22/18 09:00 06/22/18 20:49 Ns Flush IV.FLUSH 2 ml BID [facility] Administration Sodium Chloride 2 ml 06/22/18 08:51 Ns Flush IV.FLUSH PRN PRN FLUSH AFTER USING IV ACCESS Objective Remarks: NAD RRR Clear lungs Abd soft, NT. Incisions c/d/i Bladder is not distended, f Assessment and Plan - Plan 73y.o M POD # 1 s/p right robotic nephro ureterectomy by Continue current management Regular diabetic diet Pain meds prn Labs at AM Monitor I/O DVT prophylaxis Hold Eliquis for now OOB and ambulate, Use IS if in bed Hospitalist service help appreciated. Urology continues to follow Discussed Condition With: Dr Trotter
[2018-06-23] MEDS: Sodium Chloride 0.9% 2 ML Flush BID IV.FLUSH SCH ×2 (11:33→20:35)
[2018-06-23] MEDS: Pantoprazole Inj 40 MG Vial IV.PUSH SCH (16:15)
[2018-06-23] MEDS ORDERED: Insulin Detemir Inj 1,000 UNIT/10 ML Vial SQ SCH (18:00)
[2018-06-24 08:29] VITALS: RESP 16
[2018-06-24] MEDS: Lisinopril 20 MG Tablet PO SCH (09:09)
[2018-06-24] MEDS: Metoprolol Tartrate 50 MG Tablet PO SCH (09:09)
[2018-06-24] MEDS: dilTIAZem CD 180 MG Capsule PO SCH (09:09)
[2018-06-24] MEDS: Docusate Sodium 100 MG Capsule PO SCH (09:09)
[2018-06-24] MEDS: Sodium Chloride 0.9% 2 ML Flush BID IV.FLUSH SCH (09:10)
[2018-06-24] MEDS: Insulin NovoLOG Aspart Correctional Sugar Inj SQ SCH ×2 (09:10→13:26)
[2018-06-24 09:28] LABS: Baso % (Auto) 0.3 % (0.0-2.0); Eos # (Auto) 0.2 th/mm3 (0.0-0.4); Eos % (Auto) 2.5 % (0.0-4.0); Hematocrit 26.6 % (39.0-51.0); Hemoglobin 8.7 gm/dL (13.0-17.0); Lymph # (Auto) 0.5 th/mm3 (1.0-4.8); Lymph % (Auto) 8.1 % (9.0-44.0); Mean Corpuscular HGB Conc 32.6 % (32.0-36.0); Mean Corpuscular Hemoglobin 30.2 pg (27.0-34.0); Mean Corpuscular Volume 92.7 fL (80.0-100.0); Mean Platelet Volume 9.5 fL (7.0-11.0); Mono # (Auto) 0.4 th/mm3 (0.0-0.9); Mono % (Auto) 6.5 % (0.0-8.0); Neut # (Auto) 5.4 th/mm3 (1.8-7.7); Neut % (Auto) 82.6 % (16.0-70.0); Platelet Count 204 th/mm3 (150-450); Red Blood Count 2.87 mil/mm3 (4.50-5.90); White Blood Count 6.6 th/mm3 (4.0-11.0)
--- NOTE | 2018-06-24 09:49 | P.DCO ---
- Diagnosis (1) Kidney malignancy Status: Acute - Home Health Nursing Order: Signs/symptoms of disease process - Case Management Consult Yes - Certification I have seen patient Juan Lee on 06/24/18. My clinical findings support the need for the requested home health care services because: Deconditioned with increased weakness, Limited ability to care for self I certify that my clinical findings support that this patient is homebound because: Post-op weakness (1) Kidney malignancy Qualifiers: Laterality: right Qualified Code(s): C64.1 - Malignant neoplasm of right kidney, except renal pelvis
[2018-06-24 10:03] LABS: Calcium 8.1 mg/dL (8.5-10.1); Carbon Dioxide 23.4 meq/L (21.0-32.0); Potassium 3.9 meq/L (3.5-5.1)
--- NOTE | 2018-06-24 11:42 | P.PN ---
Subjective Interval history: Follow-up visit for nephroureterectomy and DM. Patient seen and examined sitting up in chair in no acute distress. Nurse reports hypoglycemic episode once again this morning, patient asymptomatic. He denies any nausea, vomiting, diarrhea, cough, shortness of breath or chest pain. Still without bowel movement however passing gas and voiding without any dysuria hematuria. Patient reports that at home he does not always take 25 units of Levemir twice a day that he will frequently adjust his dose depending on what he has eaten throughout the day. Physical Exam Vital signs: Vital Signs 06/23/18 12:00 06/23/18 16:00 06/23/18 20:00 Temperature 98.2 F 98.8 F 98.3 F Pulse Rate 80 86 93 H Respiratory Rate 15 16 18 Blood Pressure 97/54 L 110/55 L 104/55 L Pulse Oximetry 97 95 06/23/18 20:32 06/24/18 00:00 06/24/18 04:00 Temperature 97.8 F 97.7 F Pulse Rate 85 77 84 Respiratory Rate 18 18 18 Blood Pressure 120/59 L 111/56 L 120/59 L Pulse Oximetry 95 93 L 94 L 06/24/18 08:00 Temperature 98.3 F Pulse Rate 72 Respiratory Rate 16 Blood Pressure 133/64 Pulse Oximetry 97 Intake & Output 06/23/18 06/24/18 06/24/18 18:59 06:59 18:59 Intake Total 1999 2600 / 2600 Output Total 1600 / 1600 1275 / 1275 Balance 400 / 400 1325 / 1325 Weight 90.9 kg Intake: IV 1000 / 1000 1999 NS Inj 1,000 ML @ 125 mls/hr IV 1000 / 1000 1999 .SIG .Q10H [facility] Rx#:[id number] Oral 1000 / 1000 600 / 600 Output: Urine 1600 / 1600 1275 / 1275 Other: # Voids 1 Date of Last Bowel Movement 06/20/18 # Bowel Movements 1 Narrative: GENERAL: Well-developed well-nourished male resting in bed in no acute distress. SKIN: Warm and dry. HEAD: Atraumatic. Left orbital/facial trace edema. EYES: Pupils equal and round. No scleral icterus. ENT: No nasal bleeding or discharge. Mucous membranes pink and moist. NECK: Trachea midline. CARDIOVASCULAR: Regular rate and rhythm. RESPIRATORY: No accessory muscle use. Clear to auscultation. Breath sounds distant but equal bilaterally. Subcutaneous emphysema noted. GASTROINTESTINAL: Abdomen soft, non-tender, nondistended. + Bowel sounds. Right lower quadrant dressing dry and intact, multiple abdominal puncture sites well approximated, dry and intact open to air. MUSCULOSKELETAL: Extremities without clubbing, cyanosis, or edema. No obvious deformities. NEUROLOGICAL: Awake and alert, oriented x3. No obvious cranial nerve deficits. Motor grossly within normal limits. Normal speech. PSYCHIATRIC: Appropriate mood and affect; insight and judgment normal. - Urinary Catheter Management Indwelling Urethral Catheter Cath placed during this visit: yes Reason for continuing: Hourly intake/output Insertion date: 06/21/18 Insertion time: 07:30 Results - Labs CBC & Chem 7: 06/24/18 07:06 06/24/18 07:06 Laboratory Results - last 24 hr 06/21/18 06/23/18 06/23/18 06:25 12:29 17:37 WBC RBC Hgb Hct MCV MCH MCHC RDW Plt Count MPV Neut % (Auto) Lymph % (Auto) [place]pson % (Auto) Eos % (Auto) Baso % (Auto) Neut # (Auto) Lymph # (Auto) [place]pson # (Auto) Eos # (Auto) Baso # (Auto) WBC Differential Differential Comment Sodium Potassium Chloride Carbon Dioxide Anion Gap BUN Creatinine Estimated GFR POC Glucose 109 127 H Random Glucose Calcium MTS Gel Crossmatch See Detail 06/23/18 06/24/18 06/24/18 20:23 07:06 07:06 WBC 6.6 RBC 2.87 L Hgb 8.7 L Hct 26.6 L MCV 92.7 MCH 30.2 MCHC 32.6 RDW 14.0 Plt Count 204 MPV 9.5 Neut % (Auto) 82.6 H Lymph % (Auto) 8.1 L [place]pson % (Auto) 6.5 Eos % (Auto) 2.5 Baso % (Auto) 0.3 Neut # (Auto) 5.4 Lymph # (Auto) 0.5 L [place]pson # (Auto) 0.4 Eos # (Auto) 0.2 Baso # (Auto) 0.0 WBC Differential . Differential Comment Auto diff final Sodium 144 Potassium 3.9 Chloride 112 H Carbon Dioxide 23.4 Anion Gap 9 BUN 22 H Creatinine 1.82 H Estimated GFR 37 L POC Glucose 111 H Random Glucose 34 L* Calcium 8.1 L D MTS Gel Crossmatch 06/24/18 06/24/18 06/24/18 07:51 08:12 09:08 WBC RBC Hgb Hct MCV MCH MCHC RDW Plt Count MPV Neut % (Auto) Lymph % (Auto) [place]pson % (Auto) Eos % (Auto) Baso % (Auto) Neut # (Auto) Lymph # (Auto) [place]pson # (Auto) Eos # (Auto) Baso # (Auto) WBC Differential Differential Comment Sodium Potassium Chloride Carbon Dioxide Anion Gap BUN Creatinine Estimated GFR POC Glucose 45 L* 60 L 85 Random Glucose Calcium MTS Gel Crossmatch Assessment and Plan - Assessment (1) Diabetes mellitus Code(s): E11.9 - Type 2 diabetes mellitus without complications Status: Acute (2) HTN (hypertension) Code(s): I10 - Essential (primary) hypertension Status: Acute (3) HLD (hyperlipidemia) Code(s): E78.5 - Hyperlipidemia, unspecified Status: Acute (4) Atrial fibrillation Code(s): I48.91 - Unspecified atrial fibrillation Status: Acute (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 [facility] has been consulted to assist with ongoing medical management during his stay. Malignant pathology of renal biopsy -Patient is s/p right robotic nephroureterectomy by - Pain control with oral Percocet and IV morphine for breakthrough pain - Voiding -Monitor incision sites for infection Chronic kidney disease Unsure of creatinine baseline -Slight improvement in creatinine Diabetes mellitus -Regular diet this morning - Accu-checks with ISS -Hypoglycemic again this a.m. HS Levemir dose once again reduced, no 10 units. Discussed with patient to continue BS monitoring and home and adjust insulin accordingly, verbalized understanding. -Continue following BS Atrial fibrillation HTN/HLD - Eliquis on hold following surgery, resume when okay with - Rate control with Cardizem, continue metoprolol and Lisinopril for BP control - BP stable Subcutaneous emphysema -Chest x-ray reviewed, extensive pneumoperitoneum and extensive subcutaneous emphysema bilaterally. -Patient is asymptomatic, oxygen saturation stable and VSS. - Improving DVT prophylaxis-SCD's Daughter with concerns for patient safety going home. Discussed with daughter and family as well as patient that he has been discharged from the urology standpoint. Daughter requesting 1 more night stay in hospital for monitoring. Call placed to Dr. Ortega, he defers to decision. Daughter later makes nursing staff aware as well as myself that after discussing with patient they are agreeable for patient to go home today. Discussed Condition With: Patient, daughter, RN, case management, Dr. Ortega. Discharge Planning: DC home by
--- NOTE | 2018-06-24 13:06 | P.DCO ---
- Physical Therapy Order: Evaluate and treat, Improve ambulation, Strength and gait training - Home Health Nursing Order: Signs/symptoms of disease process - Case Management Consult Yes - Certification I have seen patient Juan Lee on 06/24/18. My clinical findings support the need for the requested home health care services because: Deconditioned with increased weakness I certify that my clinical findings support that this patient is homebound because: Post-op weakness
[2018-06-24 13:11] VITALS: BP 120/56; PULSE 71; TEMP 98; O2SAT 96
[2018-06-24] MEDS: Insulin Detemir Inj 1,000 UNIT/10 ML Vial SQ SCH (13:27)
[2018-06-24] MEDS ORDERED: Insulin Detemir Inj 1,000 UNIT/10 ML Vial SQ SCH (18:00)
--- NOTE | 2018-07-31 16:16 | P.DS ---
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 He was admitted following a complex right robotic nephroureterectomy. His hospital course was uncomplicated. He did very well. His catheter was removed on POD #1. He ambulated the following day as well. He moved his bowels immediately. Hemoglobin, kidney function remained stable. He was discharged home on POD#3. DS: Diagnosis - Discharge Diagnosis (1) Kidney malignancy Status: Acute DS: Medications - Discharge Medications Prescriptions: docusate sodium [DOK] 100 mg PO PRN #30 cap ondansetron [Zofran ODT] 4 mg PO Q6-8H PRN #15 tab PRN Reason: Nausea And Vomiting oxycodone-acetaminophen 2 tab PO Q4H PRN #20 tab PRN Reason: Acute Pain DS: Summary Hospital Course: 73 yo male with high grade ureteral cancer. He was admitted following a complex right robotic nephroureterectomy. His hospital course was uncomplicated. He did very well. His catheter was removed on POD #1. He ambulated the following day as well. He moved his bowels immediately. Hemoglobin, kidney function remained stable. He was discharged home on POD#3. - Time Spent with Patient Total time spent providing and/or coordinating discharge services: Greater than 30 minutes - Quality: VTE Deep Vein Thrombosis/Pulmonary Embolism Present on Admission: No Results Procedures completed during hospitalization: Right Robotic Radical Nephrectomy with partial ureterectomy. Completed studies during hospitalization: Pending at discharge 06/21/18 13:49 Surgical [PTH] Routine - Impressions ITS Impressions Chest X-Ray 06/21/18 00:00 CONCLUSION: 1. Extensive pneumoperitoneum. 2. Extensive subcutaneous emphysema bilaterally. Discharge Plan - Discharge Disposition Patient Disposition: W/Home Health Service - Discharge Condition Condition: Fair - Discharge Order Discharge Orders: Discharge Order (Routine); Ordered 06/24/18 Ordered By: Arnaldo Trotter - Discharge Details Anticipated Discharge Date: 06/24/18 Discharge Comment: if tolerates lunch well - Physicians Team Primary Care Provider: David Longoria V Attending Provider: Arnaldo Trotter Other Providers: Rebeca Joaquin MD ; [employer] - Rxs /Orders / Referrals /Forms Prescriptions: New docusate sodium [DOK] 100 mg Capsule 100 mg PO PRN Qty: 30 RF: 0 ondansetron [Zofran ODT] 4 mg Tablet,Disintegrating 4 mg PO Q6-8H PRN (Reason: Nausea And Vomiting) Qty: 15 RF: 0 oxycodone-acetaminophen 5-325 mg Tablet 2 tab PO Q4H PRN (Reason: Acute Pain) Qty: 20 RF: 0 Continue apixaban [Eliquis] 2.5 mg Tablet 2.5 mg PO BID Qty: 0 RF: 0 atorvastatin 20 mg Tablet 20 mg PO HS diltiazem HCl 180 mg Capsule,Extended Release 24 Hr 180 mg PO DAILY [id number] [Osteo Bi-Flex Triple Strength] 750 mg-644 mg - 30 mg-1 mg Tablet 1 tab PO BID insulin detemir U-100 [Levemir U-100 Insulin] 100 unit/mL Solution 25 unit SUBCUT QAM insulin detemir U-100 [Levemir U-100 Insulin] 100 unit/mL Solution 25 unit SUBCUT QPM melatonin 10 mg Tablet 10 mg PO HS PRN (Reason: Insomnia) metoprolol tartrate 50 mg Tablet 50 mg PO BID quinapril [Accupril] 20 mg Tablet 20 mg PO DAILY vitamin B complex Capsule 1 cap PO DAILY Referrals: David Longoria MD [Primary Care Provider] - See Instructions - Discharge Instructions Patient Printed Instructions: Oxycodone/Acetaminophen (By mouth), Laxative, Stool Softeners (By mouth), Laparoscopic Partial Nephrectomy (DC) Additional Instructions: Restart Eliquis on 06/26/2018.
--- NOTE | 2018-07-31 16:59 | MP ---
cc: Arnaldo Trotter MD DATE OF OPERATION: 06/21/2018 PREOPERATIVE DIAGNOSIS: High-grade right ureteral urothelial cell carcinoma. POSTOPERATIVE DIAGNOSIS: High-grade right ureteral urothelial cell carcinoma. PROCEDURE PERFORMED: Right robotic radical nephrectomy with partial ureterectomy. SURGEON: Arnaldo Trotter MD ANESTHESIA: General. COMPLICATIONS: IVC injury. DRAINS: Sousa catheter to gravity drainage. SPECIMENS: Right kidney and partial ureter for permanent. DISPOSITION: Stable to recovery. INDICATIONS/SIGNIFICANT HISTORY: The patient is a 73-year-old male with biopsy-proven, high-grade right ureteral TCC. Metastatic workup was negative. The patient had been on Eliquis and did receive cardiac clearance to hold his Eliquis 72 hours prior to the procedure. Treatment options discussed and he has elected to proceed with right robotic nephroureterectomy. After risks, benefits, and alternatives were explained to the patient, the patient elected to proceed. Informed consent was obtained. DETAILS OF PROCEDURE: The patient was properly identified and brought back to the operating room and laid supine on the operating table. Appropriate timeout was performed. Under the direct of Anesthesiology, the patient was intubated and induced under general anesthetic. Appropriate preoperative antibiotics were given within an hour of the start of procedure. The patient was then placed in left lateral decubitus position with the right side up. All pressure points were padded. A Sousa catheter was then placed under sterile technique. He was then prepped and draped in normal sterile surgical fashion. A stab incision was made just superior and lateral to the umbilicus. A Veress needle was then used to gain access to the abdominal cavity. Pneumoperitoneum was then achieved. The incision was extended to approximately 2 cm under direct visualization and I passed a 12 mm camera port in the abdominal cavity. The abdominal cavity was then carefully inspected. No evidence of any bleeding or intra-abdominal injury was seen; however, the patient had extensive adhesions to the anterior abdominal wall up towards the right kidney, as the patient had an open gallbladder in the past. At this point, I was carefully able to place the remaining ports under direct visualization around these adhesions in proper position. This included two 8 mm robotic ports triangulated off the camera port, a 5 mm liver retraction port just below the xiphoid process as well as a 12 mm assistant women's soccer coach port in the midline inferior to the umbilicus. Again, all ports were placed under direct visualization. The robot was then docked in the proper position. I began by taking down these anterior abdominal wall adhesions with cold cut scissors. This went quite well. Once these adhesions were down, I was able to see the patient's liver and colon. I then reflected the colon medially by taking down the white line of Toldt which exposed the retroperitoneum. The patient did appear to have a distended renal pelvis as it was distorting the anatomy. As I was carefully dissecting and developing a plane between the kidney and the psoas muscle, anterior retraction of the kidney was difficult. I carefully used blunt dissection to help develop this plane, but did tear,a small vein in the IVC. This was controlled and closed with 4-0 Prolene. This did control the bleeding. At this time, I was able to proceed. I marched up the IVC and came across the renal hilum. The artery and vein were each carefully dissected out. Each one was taken separately with Endo-RAUL vascular stapler. At this point, the upper pole was carefully dissected off from the liver, as well as the lateral attachments leaving just the inferior pole. The ureter itself was quite dilated and fixed to the psoas muscle and appeared to have a desmoplastic reaction. As I got to approximately the mid ureter, it appeared to be stuck like concrete onto the surrounding structures. I was unable to develop a plane. At this point, it appeared to be unresectable as tumor appeared to be coming through the ureter itself. It did appear to be unresectable at this point. Therefore, I did take a stapler across this portion of the ureter in the mid pelvis and a visible tumor was seen. This was placed in an EndoCatch bag. The abdominal cavity was irrigated copiously. At this point, hemostasis appeared to be adequate and no bleeding was seen. The previously injured vein on the IVC was carefully inspected and appeared to be completely dry and repaired successfully. At this point, with the tumor in an EndoCatch bag, I dropped the abdominal pressure down to 7 mmHg. There was no evidence of any bleeding seen. Three grams of Mark was then used for hemostatic purposes as well as Evicel. At this point, the kidney was extracted through a right lower quadrant incision after extending the incision. It was closed in 2 layers with the peritoneum closed first, followed by a running 1-0 PDS to close the fascia. A second look was performed. Hemostasis was excellent. The incision was free of bowel from underneath in the abdominal cavity. All ports were then removed under direct visualization. The remaining incisions were closed with Monocryl. This concluded the procedure. The patient was extubated and sent to recovery room in stable condition. As long as he is doing well in recovery, he will be sent to the medical/surgical floor for further observation. Arnaldo Trotter MD EMF/es , 04:24 PM , 04:35 PM
== END 2018-06-24 15:45 | disposition home health service (06) ==
LOC: HSDI 06-21 05:20 → N07 06-21 15:31
PROVIDERS: ADMIT Urology; ATTEND Urology